=== PATIENT | male | born 1945 | race Caucasian/White ===

== ENCOUNTER 2016-06-20 08:01 | Outpatient (CLI) | payer OTHER | END 2016-06-20 08:02 | disposition home or self-care (01) | DX: Z00.00 Encounter for general adult medical examination without abnormal findings (principal); E11.51 Type 2 diabetes mellitus with diabetic peripheral angiopathy without gangrene ==

== ENCOUNTER 2021-02-22 22:10 | Outpatient (CLI) | payer SELFPAY | END 2021-02-22 22:11 | disposition EMS.NT | LOC: EMS 22:10 | DX: I10 Essential (primary) hypertension (principal) ==

== ENCOUNTER 2023-08-05 14:04 | Outpatient (CLI) | payer MEDICARE ==
--- NOTE | 2023-08-05 16:37 | XRAY Report ---
PROCEDURE: Knee 3V BL INDICATIONS: PAIN OF BILATERAL KNEE JOINTS TECHNIQUE: 3 views of the bilateral knee(s) were acquired. COMPARISON: None. FINDINGS: Bones: No fractures or dislocations. No suspicious bony lesions. Bilateral chondrocalcinosis and mo derate medial compartment joint space loss. Soft tissues: No knee joint effusion. No suspicious soft tissue calcifications or masses. IMPRESSION: 1. No acute bony abnormality. 2. 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 Reviewed by: Catracho Santos MD on 08/05/2023 4:35 PM PDT Approved by: Catracho Santos MD on 08/05/2023 4:35 PM PDT Station ID: [id number]
== END 2023-08-05 14:05 | disposition home or self-care (01) ==
LOC: DI.S 14:04
PROVIDERS: ATTEND Registered Nurse
DX: M11.262 Other chondrocalcinosis, left knee (principal); M11.261 Other chondrocalcinosis, right knee; M10.9 Gout, unspecified